=== PATIENT | male | born 1995 | race Caucasian/White ===

== ENCOUNTER 2017-01-27 02:57 | Emergency (ER) | payer BC ==
--- NOTE | 2017-01-27 03:51 | ERNOTE ---
Dyspnea - Date Date of Service: 01/27/17 - General Presenting Symptoms: difficulty of breathing Source: patient, family Exam Limitations: no limitations - Immun/Allergies/Home Medications Immunizations: IMMUNIZATION HX Immunizations Up to Date Yes History of Influenza Vaccine No - History of Present Illness Narrative: 21-year-old states he had a sudden onset of epigastric pain with nausea and vomiting with a large amount of vomitus. He states he then had chest pain and felt as though he could not get his breath. He admits that he may have had a panic attack. He has minimal epigastric pain and no chest pain or SOB at this time. 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 Initiating event: Reports: none Frequency of episodes: Reports: no prior episodes Modifying Factors - (Improves): Reports: rest Modifying Factors (Worsens): Reports: nothing Associated Symptoms-Dyspnea: Reports: anxiety Review of Systems - Review of Systems Constitutional: Present: See HPI EYE: Present: no symptoms reported ENT: Present: no symptoms reported Respiratory: Present: See HPI Cardiology: Present: no symptoms reported Gastrointestinal/Abdominal: Present: See HPI Genitourinary: Present: no symptoms reported Musculoskeletal: Present: no symptoms reported Skin: Present: no symptoms reported Neurological: Present: no symptoms reported Endocrine: Present: no symptoms reported Hematologic/Lymphatic: Present: no symptoms reported - Patient's Past Medical History Patient History - Medical: No pertinent hx Patient History - Cardiac/Respiratory: No pertinent hx Patient History - Cancer: No Hx of Cancer Patient History - Surgical Procedures: No surgical history Patient History - Other: None - Social History Living Situations: alone Psych History: No pertinent hx Smoking Status: Current every day smoker Have you smoked in the past 12 months: Yes Do you dip or chew tobacco: No Alcohol Use: occasionally Drug Use: none - Immunizations Immunizations Up to Date: Yes History of Influenza Vaccine: No Physical Exam - Physical Exam General Appearance: Present: wd/wn, alert, no apparent distress Eye Exam: Normal inspection: bilateral, PERRL: bilateral Ears, Nose, Throat: Present: normal ENT inspection, H, normal pharynx Neck: Present: normal inspection, nontender Respiratory: Present: no respiratory distress, normal breath sounds, no accessory muscle use, chest nontender, lungs clear Cardiovascular/Chest: Present: regular rate, rhythm, no murmur, normal peripheral pulses Gastrointestinal/Abdominal: Present: normal bowel sounds, nondistended, soft, no organomegaly, tenderness - very minimal epigastric Rectal Exam: Present: deferred Back Exam: Present: normal inspection, normal range of motion, no CVA tenderness , no vertebral tenderness Extremity Exam: Present: normal inspection, non-tender, no edema, normal range of motion Neurological Exam: Present: alert, oriented, normal mood/affect, no motor/ sensory deficits Skin Exam: Present: normal color, warm/dry Lymphatic Exam: Present: no adenopathy ED Progress - Vital Signs Vital Signs: Vital Signs 01/27/17 02:57 Temperature 36.5 C Pulse Rate 74 Respiratory 18 Rate Blood Pressure 128/74 O2 Sat by Pulse 100 Oximetry - Progress/Reassessment Chief Complaint: Dyspnea Plan - Plan Plan: Patient apparently had an acute gastritis associated with a panic attack. His chest x-ray is normal certainly no evidence of spontaneous pneumothorax and symptoms have all but subsided. We will allow him to go home and see his own doctor or return to emergency department if further signs and symptoms should develop Departure Clinical Impression: Panic attack Acute gastritis Qualifiers: Gastritis type: other gastritis Gastritis bleeding: without bleeding Qualified Code(s): K29.00 - Acute gastritis without bleeding - Departure Disposition: Home self-care Condition: Good Instructions: Gastritis, Adult, [id number] Additional Instructions: Try some antacids. If further signs or symptoms occur contact your physician or return to the emergency department
[2017-01-27 03:59] VITALS: BP 120/72
== END 2017-01-27 03:56 | disposition home or self-care (01) ==
LOC: ER 02:57
DX: K29.00 Acute gastritis without bleeding (principal); F41.0 Panic disorder [episodic paroxysmal anxiety]; F17.210 Nicotine dependence, cigarettes, uncomplicated